=== PATIENT | female | born 1970 | race Caucasian/White ===

== ENCOUNTER 2022-05-08 21:31 | Emergency (ER) | payer SELFPAY ==
[~2022-05-08] VITALS: Ht 157.5 cm; Wt 72.6 kg
[2022-05-08 21:52] VITALS: BP 136/63
[2022-05-08] MEDS ORDERED: ACETAMINOPHEN 325MG TABLET PO STA (22:36)
[2022-05-08] MEDS ORDERED: LORAZEPAM 0.5MG TABLET PO ONE (22:45)
[2022-05-08 23:14] LABS: CHLORIDE 98 mEq/L (98-107)
[2022-05-08 23:30] LABS: BASOPHILS % 0.4 % (0.0-2.0); EOSINOPHILS % 0.8 % (0.0-5.0); HEMATOCRIT. 42.4 % (36.0-48.0); HEMOGLOBIN. 14.6 g/dL (12.0-16.0); LYMPHOCYTES % 20.3 % (20.0-50.0); MEAN CORPUSCULAR HEMOGLOBIN 31.9 pg (28.0-32.0); MEAN CORPUSCULAR VOLUME 92.8 fL (81.0-99.0); MEAN PLATELET VOLUME 10.2 fl (7.4-10.4); MONOCYTES % 6.6 % (2.0-8.0); NEUTROPHILS % 71.9 % (40.0-76.0); PLATELET 295 x1000/uL (130-400); RED BLOOD CELL COUNT 4.57 mill/uL (4.2-5.4); RED CELL DISTRIBUTION WIDTH 12.6 % (11.6-14.6)
[2022-05-09] MEDS ORDERED: SODIUM CHLORIDE 0.9% 1,000 ML IV ONE (00:15)
[2022-05-09] MEDS ORDERED: METF-414 MT (02:39)
[2022-05-09] MEDS ORDERED: IBUP-2029 MT (02:39)
== END 2022-05-09 03:10 | disposition home or self-care (01) ==
LOC: ER 21:31
DX: R55 Syncope and collapse (principal); S09.8XXA Other specified injuries of head, initial encounter; R07.89 Other chest pain; E11.65 Type 2 diabetes mellitus with hyperglycemia; F41.1 Generalized anxiety disorder; W18.39XA Other fall on same level, initial encounter; Y93.89 Activity, other specified; Y92.018 Other place in single-family (private) house as the place of occurrence of the external cause; D72.829 Elevated white blood cell count, unspecified; I10 Essential (primary) hypertension; E78.00 Pure hypercholesterolemia, unspecified; Z79.84 Long term (current) use of oral hypoglycemic drugs; Z79.899 Other long term (current) drug therapy
CPT/HCPCS: 36415; 70450; 71045; 80053; 82962; 83880; 84484; 85025; 93005; 96360; 99285; J7030; Z7610